=== PATIENT | male | born 1985 | race Caucasian/White ===

== ENCOUNTER 2017-11-13 07:15 | Emergency (ER) | payer OTHER ==
[~2017-11-13] VITALS: Ht 182.9 cm; Wt 73.0 kg
[~2017-11-13 07:15] MED LIST: ZOFR4TAB3 SL
[2017-11-13 07:16] VITALS: BP 114/66; PULSE 73; RESP 16; TEMP 98.1; O2SAT 100
--- NOTE | 2017-11-13 08:17 | PD ---
HPI Chief Complaint: Hip Injury Time Seen by Provider: 07:53 Travel History International Travel<30 days: No Contact w/Intl Traveler<30days: No Traveled to known affect area: No History of Present Illness HPI This is a 32-year-old male here with right hip and inguinal pain after he fell to the ground while wrestling with friends last night. He denies paresthesia or weakness of extremities. He has pain with abduction and external rotation of the hip. He also has pain with weightbearing. Pain is relieved with rest. Symptom severity is moderate. No other injuries. PFSH Past Medical History Medical History: Denies Significant Hx Diminished Hearing: No ?: Not Past Surgical History Ear Surgery: Yes Eye Surgery: Yes Social History Alcohol Use: Yes (every other day) Tobacco Use: Yes (1/2 a day) Substance Use: No Allergies-Medications (Allergen,Severity, Reaction): Coded Allergies: No Known Allergies (Unverified Adverse Reaction, Unknown, 11/13/17) Reported Meds & Prescriptions Reported Meds & Active Scripts Active Zofran ODT (Ondansetron HCl) 4 Mg Tab 4 Mg SL Q6H PRN FOR NAUSEA/VOMITING Review of Systems Except as stated in HPI: all other systems reviewed are Neg General / Constitutional: No: Fever Eyes: No: Visual changes HENT: No: Headaches Cardiovascular: No: Chest Pain or Discomfort Respiratory: No: Shortness of Breath Gastrointestinal: No: Abdominal Pain Genitourinary: No: Dysuria Musculoskeletal: Positive: Pain (right hip pain) Physical Exam Narrative GENERAL: Alert & well appearing male. SKIN: Warm and dry. HEAD: Normocephalic. atraumatic EYES:No injection or drainage. NECK: Supple, trachea midline. No cervical midline tenderness CARDIOVASCULAR: Regular rate and rhythm RESPIRATORY: Breath sounds equal bilaterally. No accessory muscle use. GASTROINTESTINAL: Abdomen soft, non-tender, nondistended. MUSCULOSKELETAL: No cyanosis, or edema. Pelvis is stable. Right lower extremity: Tenderness to the anterior aspect of hip. Patient points to the right inguinal region as site of pain when the hip is externally rotated. 2+ distal pulses. Normal sensation. Brisk cap refill. BACK: Nontender spine. No obvious deformity. No CVA tenderness. Data Data Last Documented VS Vital Signs Date Time Temp Pulse Resp B/P (MAP) Pulse Ox O2 Delivery O2 Flow Rate FiO2 11/13/17 07:16 98.1 73 16 114/66 (82) 100 Orders Orders Hip, Uni(Ap&Lat) W Ap Pelvis (11/13/17 ) Ketorolac Inj (Toradol Inj) (11/13/17 08:30) Crutches (11/13/17 08:48) Ed Discharge Order (11/13/17 09:02) MDM Medical Decision Making Medical Screen Exam Complete: Yes Emergency Medical Condition: Yes Differential Diagnosis Inguinal strain, hip fracture, pelvis fracture Narrative Course 32-year-old male here with right hip and inguinal pain after he fell from a standing position while wrestling with friends yesterday. All this is stable. Right lower extremity is neurovascularly intact. X-ray ordered and pending. X-ray is negative for fracture. Patient is reporting symptom improvement after Toradol. He will be given crutches and discharged him with NSAIDs and muscle relaxers for inguinal strain Diagnosis Primary Impression: Strain of right inguinal muscle Qualified Codes: S39.013A - Strain of muscle, fascia and tendon of pelvis, initial encounter Referrals: Primary Care Physician Departure Forms: Tests/Procedures, Work Release Enter return to work date: Nov 16, 2017 Additional Instructions: Ibuprofen 800 mg every 6 hours as needed for pain. Robaxin as needed for muscle spasm. Crutches for weightbearing. Avoid heavy lifting or strenuous activity. Follow-up the primary doctor. Scripts Methocarbamol (Robaxin) 500 Mg Tab 500 MG PO TID for Muscle Spasm, #12 TAB 0 Refills Prov: Natalia Trujillo 11/13/17 Ibuprofen (Ibuprofen) 800 Mg Tab 800 MG PO Q6HR Y for PAIN, #40 TAB 0 Refills Prov: Natalia Trujillo 11/13/17 Disposition: 01 DISCHARGE HOME Condition: Stable Natalia Trujillo Nov 13, 2017 08:17
[2017-11-13] MEDS ORDERED: KETOROLAC TROMETHAMINE 60 MG/2 ML (IM) VIAL IM ONE (08:30)
[2017-11-13] MEDS ORDERED: IBUP1TAB7 PO (09:05)
[2017-11-13] MEDS ORDERED: ROBA500T PO (09:05)
--- NOTE | 2017-11-13 09:06 | RADRPT ---
EXAM DATE/TIME: 11/13/2017 08:20 [facility] COMPARISON: No previous studies available for comparison. INDICATIONS : Right hip pain. Wrestling injury. MEDICAL HISTORY : None. SURGICAL HISTORY : None. ENCOUNTER: Initial ACUITY: 1 day PAIN SCORE: 9/10 LOCATION: Right hip FINDINGS: Examination of the right hip was performed with AP Pelvis. The primary and secondary trabecular nancy abraham of the femoral neck is intact. The hip joint is of normal width without significant sclerosis or bony hypertrophy. The acetabulum is grossly intact. CONCLUSION: Unremarkable examination of the right hip. Nael Christianson MD on November 13, 2017 at 9:02 Board Certified Radiologist. This report was verified electronically.
== END 2017-11-13 09:20 | disposition home or self-care (01) ==
LOC: NEPD 07:15
DX: S39.013A Strain of muscle, fascia and tendon of pelvis, initial encounter (principal); W03.XXXA Other fall on same level due to collision with another person, initial encounter; Y93.72 Activity, wrestling; Z72.0 Tobacco use
CPT/HCPCS: 73502; 96372; 99284; E0113; J1885

== ENCOUNTER 2017-11-19 12:13 | Emergency (ER) | payer OTHER | END 2017-11-19 12:25 | disposition left against medical advice (07) | LOC: NED 12:13 | DX: Z03.89 Encounter for observation for other suspected diseases and conditions ruled out (principal) | CPT/HCPCS: 99281 ==